=== PATIENT | male | born 1995 | race African-American/Black ===

== ENCOUNTER 2016-05-20 14:56 | Emergency (ER) | payer SELFPAY ==
[~2016-05-20] VITALS: Ht 172.7 cm; Wt 59.0 kg
[~2016-05-20 14:56] MED LIST: ASPI81TA82 PO
--- NOTE | 2016-05-20 15:39 | PD ---
HPI Chief Complaint: Psychiatric Symptoms Time Seen by Provider: 15:37 Travel History International Travel<30 days: No Contact w/Intl Traveler<30days: No Traveled to known affect area: No History of Present Illness HPI 21-year-old Afro-Dominican male presents the emergency department under the Holliday act, with reports that his girlfriend is concerned that he is suicidal, and that he has not been taking his psychiatric medications. Patient denies this, and has no complaints. He has no known drug allergies. [facility] Social History Alcohol Use: Yes Tobacco Use: No Substance Use: Yes (PT ADMITS TO USING MARIJUANA DAILY) Allergies-Medications (Allergen,Severity, Reaction): Coded Allergies: No Known Allergies (Unverified , 11/02/14) Reported Meds & Prescriptions Reported Meds & Active Scripts Active Reported Aspir-81 (Aspirin) 81 Mg Tab 2 Tab PO BID Review of Systems Except as stated in HPI: all other systems reviewed are Neg General / Constitutional: No: Fever Eyes: No: Visual changes HENT: No: Headaches Cardiovascular: No: Chest Pain or Discomfort Respiratory: No: Shortness of Breath Gastrointestinal: No: Abdominal Pain Genitourinary: No: Dysuria Musculoskeletal: No: Pain Skin: No Rash Neurologic: No: Weakness Psychiatric: No: Depression Endocrine: No: Polydipsia Hematologic/Lymphatic: No: Easy Bruising Physical Exam Narrative GENERAL: Patient appears in no acute distress. Patient is alert and oriented and in good spirits. SKIN: Warm and dry. Normal color. Normal turgor. HEAD: Atraumatic. Normocephalic. EYES: Pupils equal and round. No scleral icterus. No injection or drainage. ENT: No nasal bleeding or discharge. Mucous membranes pink and moist. Pharynx is clear. NECK: Trachea midline. Neck is supple. CARDIOVASCULAR: Regular rate and rhythm. No murmurs gallops or rubs. RESPIRATORY: No accessory muscle use. Clear to auscultation. Breath sounds equal bilaterally. MUSCULOSKELETAL: Extremities without clubbing, cyanosis, or edema. No obvious deformities. NEUROLOGICAL: Awake and alert. No obvious cranial nerve deficits. Motor grossly within normal limits. Five out of 5 muscle strength in the arms and legs. Normal speech. PSYCHIATRIC: Appropriate mood and affect; insight and judgment normal. Data Data Last Documented VS Vital Signs Date Time Temp Pulse Resp B/P Pulse Ox O2 Delivery O2 Flow Rate FiO2 3/6/17 15:49 98.6 82 16 185/102 100 Room Air Orders Complete Blood Count With Diff (05/20/16 15:35) Comprehensive Metabolic Panel (05/20/16 15:35) Psych Screen (05/20/16 15:35) Drug Screen, Random Urine (05/20/16 15:35) Alcohol (Ethanol) (05/20/16 15:35) Lorazepam (Ativan) (05/20/16 16:30) Labs Laboratory Tests Test 05/20/16 15:45 White Blood Count 12.3 TH/MM3 Red Blood Count 5.16 MIL/MM3 Hemoglobin 15.2 GM/DL Hematocrit 44.8 % Mean Corpuscular Volume 86.9 FL Mean Corpuscular Hemoglobin 29.4 PG Mean Corpuscular Hemoglobin 33.9 % Concent Red Cell Distribution Width 13.4 % Platelet Count 194 TH/MM3 Mean Platelet Volume 10.0 FL Neutrophils (%) (Auto) 71.9 % Lymphocytes (%) (Auto) 19.0 % Monocytes (%) (Auto) 7.7 % Eosinophils (%) (Auto) 0.8 % Basophils (%) (Auto) 0.6 % Neutrophils # (Auto) 8.8 TH/MM3 Lymphocytes # (Auto) 2.3 TH/MM3 Monocytes # (Auto) 0.9 TH/MM3 Eosinophils # (Auto) 0.1 TH/MM3 Basophils # (Auto) 0.1 TH/MM3 CBC Comment DIFF FINAL Differential Comment Sodium Level 139 MEQ/L Potassium Level 3.9 MEQ/L Chloride Level 101 MEQ/L Carbon Dioxide Level 29.4 MEQ/L Anion Gap 9 MEQ/L Blood Urea Nitrogen 14 MG/DL Creatinine 1.21 MG/DL Estimat Glomerular Filtration 90 ML/MIN Rate Random Glucose 95 MG/DL Calcium Level 9.3 MG/DL Total Bilirubin 0.7 MG/DL Aspartate Amino Transf 25 U/L (AST/SGOT) Alanine Aminotransferase 49 U/L (ALT/SGPT) Alkaline Phosphatase 80 U/L Total Protein 8.1 GM/DL Albumin 4.2 GM/DL Urine Opiates Screen NEG Urine Barbiturates Screen NEG Urine Amphetamines Screen NEG Urine Benzodiazepines Screen NEG Urine Cocaine Screen NEG Urine Cannabinoids Screen POS Ethyl Alcohol Level LESS THAN 3 MG/DL MDM Medical Decision Making Medical Screen Exam Complete: Yes Emergency Medical Condition: Yes Differential Diagnosis Holliday act. Suicidal ideation. Psychiatric history. Narrative Course Patient is medically stable at time of exam. Psychiatric labs ordered including CBC, CMP, serum alcohol level, and urine drug screen. Patient is medically cleared for psychiatric evaluation. Diagnosis Primary Impression: Medical clearance for psychiatric admission Condition: Stable Chepe Bejarano May 20, 2016 15:39
[2016-05-20 15:49] VITALS: BP 185/102; PULSE 82; RESP 16; TEMP 98.6; O2SAT 100
[2016-05-20 16:04] LABS: AUTOMATED NEUTROPHIL # 8.8 TH/MM3 (1.8-7.7); BASOPHIL # 0.1 TH/MM3 (0-0.2); BASOPHIL % 0.6 % (0.0-2.0); EOSINOPHIL # 0.1 TH/MM3 (0-0.4); EOSINOPHIL % 0.8 % (0.0-4.0); HEMATOCRIT 44.8 % (39.0-51.0); HEMO FLAGS DIFF FINAL; LYMPHOCYTE # 2.3 TH/MM3 (1.0-4.8); MEAN CELL VOLUME 86.9 FL (80.0-100.0); MEAN CORPUSCULAR HEMOGLOBIN 29.4 PG (27.0-34.0); MEAN CORPUSCULAR HGB CONC 33.9 % (32.0-36.0); MONO % 7.7 % (0.0-8.0); NEUT % 71.9 % (16.0-70.0); PLATELET COUNT 194 TH/MM3 (150-450); RED BLOOD COUNT 5.16 MIL/MM3 (4.50-5.90); RED CELL DISTRIBUTION WIDTH 13.4 % (11.6-17.2); WHITE BLOOD COUNT 12.3 TH/MM3 (4.0-11.0)
[2016-05-20] MEDS ORDERED: LORazepam 2 MG TAB PO ONE (16:30)
[2016-05-20 16:32] LABS: ALT (GPT) 49 U/L (12-78); ANION GAP 9 MEQ/L (5-15); AST (GOT) 25 U/L (15-37); BICARBONATE 29.4 MEQ/L (21.0-32.0); BLOOD UREA NITROGEN 14 MG/DL (7-18); CHLORIDE 101 MEQ/L (98-107); GLOMERULAR FILTRATION RATE 90 ML/MIN (>89); POTASSIUM 3.9 MEQ/L (3.5-5.1); SODIUM (NA) 139 MEQ/L (136-145)
[2016-05-20 16:35] LABS: ALKALINE PHOSPHATASE 80 U/L (45-117); TOTAL BILIRUBIN ADULT 0.7 MG/DL (0.2-1.0)
[2016-05-20 16:53] LABS: AMPHETAMINE, URINE NEG (NEG); BARBITURATES, URINE NEG (NEG); COCAINE, URINE NEG (NEG)
[2016-05-20 18:42] VITALS: BP 148/65; PULSE 80; RESP 18; O2SAT 98
[2016-05-20 22:05] VITALS: BP 137/90; PULSE 83; RESP 19; O2SAT 97
[2016-05-21 02:00] VITALS: BP 130/60; PULSE 84; RESP 19; O2SAT 98
[2016-05-21] MEDS ORDERED: SERO100T PO (02:40)
[2016-05-21] MEDS ORDERED: SERO300T PO (02:40)
== END 2016-05-21 05:24 ==
LOC: NEDAMB 14:56 → NEPJ 05-21 05:24
DX: Z91.14 Patient's other noncompliance with medication regimen (principal)
CPT/HCPCS: 80053; 80307; 85025; 99285

== ENCOUNTER 2016-06-02 12:32 | Emergency (ER) | payer OTHER ==
[~2016-06-02 12:32] MED LIST changes: -ASPI81TA82 PO; +SERO100T PO; +SERO300T PO
[2016-06-02 12:40] VITALS: BP 143/95; PULSE 86; RESP 18; TEMP 98.7; O2SAT 98
--- NOTE | 2016-06-02 12:46 | PD ---
HPI Chief Complaint: Psychiatric Symptoms Time Seen by Provider: 12:41 Travel History International Travel<30 days: No Contact w/Intl Traveler<30days: No Traveled to known affect area: No History of Present Illness HPI 21-year-old Afro-Scottish male presents the emergency department under Holliday act. Patient is brought in by local police. He was on [address] in [place] with a piece of the palm tree in his hair, only in his underwear, and wearing a blanket, stating that he was looking and walking as if he was goose stepping like Hitler. Patient stated to police that he is immortal, and unable to be killed. Patient denies suicidal or homicidal ideation. Patient states he has been taking his psychiatric medications which he reports to be Seroquel 500 mg at night and 100 mg in the morning. Patient denies any other medical problems. He denies fever, chills, or pain of any kind. Patient denies using alcohol or drugs. Patient has no known drug allergies. PFSH Past Medical History Medical History: Unable to Obtain Social History Alcohol Use: Yes Tobacco Use: No Substance Use: Yes Allergies-Medications (Allergen,Severity, Reaction): Coded Allergies: No Known Allergies (Unverified , 06/02/16) Reported Meds & Prescriptions Reported Meds & Active Scripts Active Reported Seroquel (Quetiapine Fumarate) 300 Mg Tab 300 Mg PO HS Seroquel (Quetiapine Fumarate) 100 Mg Tab 100 Mg PO DAILY Review of Systems ROS Limitations: Psychotic Except as stated in HPI: all other systems reviewed are Neg General / Constitutional: No: Fever Eyes: No: Visual changes HENT: No: Headaches Cardiovascular: No: Chest Pain or Discomfort Respiratory: No: Shortness of Breath Gastrointestinal: No: Abdominal Pain Genitourinary: No: Dysuria Musculoskeletal: No: Pain Skin: No Rash Neurologic: No: Weakness Psychiatric: No: Depression Endocrine: No: Polydipsia Hematologic/Lymphatic: No: Easy Bruising Physical Exam Exam Limitations: Psychotic Narrative GENERAL: Patient is very pleasant and cooperative, and in no acute distress. SKIN: Warm and dry. Normal color. Normal turgor. No signs of trauma. HEAD: Atraumatic. Normocephalic. EYES: Pupils equal and round. No scleral icterus. No injection or drainage. ENT: No nasal bleeding or discharge. Mucous membranes pink and moist. Pharynx is clear. NECK: Trachea midline. No JVD. Neck is supple and nontender. CARDIOVASCULAR: Regular rate and rhythm. RESPIRATORY: No accessory muscle use. Clear to auscultation. Breath sounds equal bilaterally. MUSCULOSKELETAL: Extremities without clubbing, cyanosis, or edema. No obvious deformities. NEUROLOGICAL: Awake and alert. No obvious cranial nerve deficits. Motor grossly within normal limits. Five out of 5 muscle strength in the arms and legs. Normal speech. PSYCHIATRIC: Appropriate mood and affect; insight and judgment normal. Data Data Last Documented VS Vital Signs Date Time Temp Pulse Resp B/P Pulse Ox O2 Delivery O2 Flow Rate FiO2 06/02/16 13:04 98.7 86 18 143/96 99 Room Air Orders Complete Blood Count With Diff (06/02/16 12:46) Comprehensive Metabolic Panel (06/02/16 12:46) Psych Screen (06/02/16 12:46) Drug Screen, Random Urine (06/02/16 12:46) Alcohol (Ethanol) (06/02/16 12:46) Diet Regular Basic (06/02/16 Lunch) [facility] Medical Decision Making Medical Screen Exam Complete: Yes Emergency Medical Condition: Yes Differential Diagnosis Holliday act. Psychosis. Grandiose Narrative Course Patient is medically stable at time of exam. Psychiatric labs ordered per protocol. Meal is ordered for the patient. Patient is medically clear for psychiatric evaluation. Diagnosis Primary Impression: Medical clearance for psychiatric admission Additional Impression: Psychosis Qualified Code: F29 - Psychosis, unspecified psychosis type Condition: Stable Chepe Bejarano Jun 02, 2016 12:46
[2016-06-02 13:04] VITALS: BP 143/96; PULSE 86; RESP 18; TEMP 98.7; O2SAT 99
[2016-06-02 13:49] LABS: AMPHETAMINE, URINE NEG (NEG); BARBITURATES, URINE NEG (NEG); COCAINE, URINE NEG (NEG)
[2016-06-02 14:00] LABS: ANION GAP 10 MEQ/L (5-15); AST (GOT) 35 U/L (15-37); BICARBONATE 25.5 MEQ/L (21.0-32.0); BLOOD UREA NITROGEN 12 MG/DL (7-18); CHLORIDE 104 MEQ/L (98-107); GLOMERULAR FILTRATION RATE 98 ML/MIN (>89); SODIUM (NA) 139 MEQ/L (136-145)
[2016-06-02 14:03] LABS: ALKALINE PHOSPHATASE 81 U/L (45-117); ALT (GPT) 36 U/L (12-78); TOTAL BILIRUBIN ADULT 0.8 MG/DL (0.2-1.0)
[2016-06-02 14:08] LABS: POTASSIUM 4.5 MEQ/L (3.5-5.1)
[2016-06-02 15:39] LABS: BASOPHIL % 0.3 % (0.0-2.0); EOSINOPHIL # 0.1 TH/MM3 (0-0.4); EOSINOPHIL % 1.2 % (0.0-4.0); HEMATOCRIT 42.7 % (39.0-51.0); HEMO FLAGS DIFF FINAL; LYMPH % 24.5 % (9.0-44.0); LYMPHOCYTE # 2.3 TH/MM3 (1.0-4.8); MEAN CELL VOLUME 87.1 FL (80.0-100.0); MEAN CORPUSCULAR HEMOGLOBIN 29.1 PG (27.0-34.0); MEAN CORPUSCULAR HGB CONC 33.4 % (32.0-36.0); MONO % 9.2 % (0.0-8.0); NEUT % 64.8 % (16.0-70.0); PLATELET COUNT 230 TH/MM3 (150-450); RED CELL DISTRIBUTION WIDTH 13.2 % (11.6-17.2); WHITE BLOOD COUNT 9.3 TH/MM3 (4.0-11.0)
[2016-06-02 18:00] VITALS: BP 165/80; PULSE 60; RESP 18; TEMP 98.7; O2SAT 98
[2016-06-02 23:05] VITALS: BP 132/85; PULSE 65; RESP 18; O2SAT 99
[2016-06-03 03:05] VITALS: BP 148/91; PULSE 71; RESP 18; TEMP 97.8; O2SAT 99
[2016-06-03 06:30] VITALS: BP 134/89; PULSE 55; RESP 18; O2SAT 97
[2016-06-03 12:43] VITALS: BP 147/87; PULSE 97; RESP 18
[2016-06-03 18:48] VITALS: BP 140/81; PULSE 83; RESP 18
[2016-06-03 22:43] VITALS: BP 158/72; PULSE 70; RESP 18; O2SAT 99
== END 2016-06-03 23:45 ==
LOC: NEPC 12:32 → NEPJ 06-03 23:45
DX: F29 Unspecified psychosis not due to a substance or known physiological condition (principal)
CPT/HCPCS: 80053; 80307; 85025; 99285